=== PATIENT | female | born 1950 | race African-American/Black ===

== ENCOUNTER 2019-05-03 15:56 | Inpatient (IN) | payer OTHER, MEDICAID ==
[~2019-05-03] VITALS: Ht 165.1 cm; Wt 110.7 kg
[2019-05-03] MEDS ORDERED: FUROSEMIDE 40MG/4ML VIAL IV ONE (16:45)
[2019-05-03 17:30] LABS: BASOPHILS % 0.5 % (0.0-2.0); EOSINOPHILS % 2.4 % (0.0-5.0); HEMATOCRIT. 37.8 % (36.0-48.0); HEMOGLOBIN. 12.5 g/dL (12.0-16.0); LYMPHOCYTES % 40.4 % (20.0-50.0); MEAN CORPUSCULAR HEMOGLOBIN 30.7 pg (28.0-32.0); MEAN CORPUSCULAR VOLUME 92.6 fL (81.0-99.0); MEAN PLATELET VOLUME 9.1 fl (7.4-10.4); MONOCYTES % 11.9 % (2.0-8.0); NEUTROPHILS % 44.8 % (40.0-76.0); PLATELET 224 x1000/uL (130-400); RED BLOOD CELL COUNT 4.07 mill/uL (4.2-5.4); RED CELL DISTRIBUTION WIDTH 17.2 % (11.6-14.6)
[2019-05-03 17:33] LABS: CHLORIDE 114 mEq/L (98-107); INR 1.1; PARTIAL THROMBOPLASTIN TIME 28.7 sec (23.4-31.0); PROTHROMBIN TIME 11.7 sec (9.6-11.0)
[2019-05-03 17:38] LABS: ETHANOL BLOOD < 10 mg/dL
[2019-05-03 17:42] LABS: CARBAMAZEPINE < 0.5 ug/mL (4-12)
[2019-05-03 17:44] LABS: PHENOBARBITAL < 2.1 ug/mL (15.0-40.0)
[2019-05-03 18:25] LABS: CLARITY URINE CLEAR (CLEAR); COLOR URINE YELLOW (YELLOW); KETONES URINE NEGATIVE (NEGATIVE); LEUKOCYTE ESTERASE URINE NEGATIVE (NEGATIVE); NITRITE URINE NEGATIVE (NEGATIVE); OCCULT BLOOD URINE NEGATIVE (NEGATIVE); PH URINE 5.5 (4.5-8.0); PROTEIN URINE 2+ (NEGATIVE); SPECIFIC GRAVITY URINE 1.013 (1.005-1.030)
[2019-05-03 18:45] LABS: *AMPHETAMINES SCREEN URINE NEGATIVE (NEGATIVE); *BARBITURATES SCREEN URINE NEGATIVE (NEGATIVE); *BENZODIAZEPINES SCREEN URINE NEGATIVE (NEGATIVE); *COCAINE SCREEN URINE NEGATIVE (NEGATIVE)
[2019-05-03 18:46] LABS: CANNABINOID URINE SCREEN NEGATIVE (NEGATIVE); METHADONE URINE SCREEN NEGATIVE (NEGATIVE); OPIATES URINE SCREEN NEGATIVE (NEGATIVE); PHENCYCLIDINE URINE SCREEN NEGATIVE (NEGATIVE)
[2019-05-03] MEDS ORDERED: ONDANSETRON HCL 4MG/2ML INJ IV PRN (19:45)
[2019-05-03] MEDS ORDERED: MAGNESIUM/ALUMINUM HYDROXIDE/SIMETHICONE 30ML UDC PO PRN (19:45)
[2019-05-03] MEDS ORDERED: TRAMADOL 50MG TABLET PO PRN (19:45)
[2019-05-03] MEDS ORDERED: NITROGLYCERIN 0.4MG TABLET SL SL PRN (19:45)
[2019-05-03] MEDS ORDERED: DOCUSATE SODIUM 100MG CAPSULE PO PRN (19:45)
[2019-05-03] MEDS ORDERED: LORAZEPAM 0.5MG TABLET PO PRN (19:45)
[2019-05-03] MEDS ORDERED: GUAIFENESIN 200MG/10ML SUGAR FREE UDC PO PRN (19:45)
[2019-05-03] MEDS ORDERED: MORPHINE SULFATE 2 MG/ML CPJ (NOT FOR IM USE) IV PRN (19:45)
[2019-05-03 23:23] VITALS: BP 128/98
[2019-05-04 02:13] LABS: CREATINE KINASE MB FRACTION 2.2 ng/mL (0.5-3.6)
[2019-05-04] MEDS: PHENYTOIN SODIUM EXTENDED 100MG CAPSULE PO SCH ×2 (02:29→22:03)
[2019-05-04] MEDS: FAMOTIDINE 20MG TABLET PO SCH ×3 (02:29→22:03)
[2019-05-04] MEDS: VALPROATE SODIUM 250MG/5ML UDC PO SCH ×2 (02:29→23:04)
[2019-05-04] MEDS: POTASSIUM CHLORIDE 20MEQ TABLET SR PO SCH ×2 (02:30→08:46)
[2019-05-04] MEDS: ACETAMINOPHEN 325MG TABLET PO PRN ×2 (02:41→23:05)
[2019-05-04] MEDS: DILTIAZEM HCL 60MG TABLET PO SCH ×3 (02:41→17:42)
[2019-05-04] MEDS: FUROSEMIDE 40MG/4ML VIAL IVP SCH ×3 (02:42→22:04)
[2019-05-04] MEDS: ENOXAPARIN 100MG/ML SYR SUBCUT SCH ×2 (02:42→13:18)
[2019-05-04] MEDS: SPIRONOLACTONE 25MG TABLET PO SCH ×3 (02:42→22:04)
[2019-05-04 04:00] VITALS: BP 153/87
[2019-05-04] MEDS: IPRATROPIUM/ALBUTEROL 0.5-3(2.5)MG/3ML NEB NEB PRN ×2 (05:16→09:03)
[2019-05-04] MEDS ORDERED: ISOS60TA4 PO (07:37)
[2019-05-04] MEDS ORDERED: HYDR-4135 MT (07:37)
[2019-05-04] MEDS ORDERED: PHEN100C4 PO (07:37)
[2019-05-04] MEDS ORDERED: FURO40TA5 PO (07:37)
[2019-05-04] MEDS ORDERED: APIX5TAB MT (07:37)
[2019-05-04] MEDS ORDERED: ASPI-986 PO (07:37)
[2019-05-04] MEDS ORDERED: AMLO10TA80 PO (07:37)
[2019-05-04] MEDS ORDERED: CARV12.545 MT (07:37)
[2019-05-04] MEDS ORDERED: POTA10TA15 PO (07:37)
[2019-05-04] MEDS ORDERED: DOCU100T MT (07:37)
[2019-05-04] MEDS ORDERED: SACU1TAB7 MT (07:37)
[2019-05-04] MEDS ORDERED: ALLO300T2 PO (07:37)
[2019-05-04 08:00] VITALS: BP 146/83
[2019-05-04] MEDS: ASPIRIN 325MG EC TABLET PO SCH (08:46)
[2019-05-04] MEDS: LISINOPRIL 20MG TABLET PO SCH ×3 (08:47→22:06)
[2019-05-04 09:56] LABS: BASOPHILS % 0.4 % (0.0-2.0); EOSINOPHILS % 1.7 % (0.0-5.0); HEMATOCRIT. 37.8 % (36.0-48.0); HEMOGLOBIN. 12.1 g/dL (12.0-16.0); LYMPHOCYTES % 35.5 % (20.0-50.0); MEAN CORPUSCULAR VOLUME 93.4 fL (81.0-99.0); MEAN PLATELET VOLUME 8.9 fl (7.4-10.4); MONOCYTES % 7.2 % (2.0-8.0); NEUTROPHILS % 55.2 % (40.0-76.0); PLATELET 217 x1000/uL (130-400); RED BLOOD CELL COUNT 4.05 mill/uL (4.2-5.4); RED CELL DISTRIBUTION WIDTH 16.7 % (11.6-14.6)
[2019-05-04 09:59] LABS: CHLORIDE 112 mEq/L (98-107)
[2019-05-04 10:11] LABS: CREATINE KINASE 109 IU/L (26-192)
[2019-05-04 10:14] LABS: CREATINE KINASE MB FRACTION 2.1 ng/mL (0.5-3.6)
[2019-05-04 12:00] VITALS: BP 151/88
[2019-05-04 16:00] VITALS: BP 149/91
[2019-05-04 20:00] VITALS: BP 147/87
[2019-05-05] VITALS: BP 172/103
[2019-05-05] MEDS: CLONIDINE 0.1MG TABLET PO PRN ×2 (00:23→06:19)
[2019-05-05] MEDS: DILTIAZEM HCL 60MG TABLET PO SCH ×2 (00:24→06:18)
[2019-05-05] MEDS: ENOXAPARIN 100MG/ML SYR SUBCUT SCH (00:25)
[2019-05-05 04:00] VITALS: BP 199/122
[2019-05-05] MEDS: VALPROATE SODIUM 250MG/5ML UDC PO SCH ×2 (06:17→14:00)
[2019-05-05] MEDS: FUROSEMIDE 40MG/4ML VIAL IVP SCH ×2 (08:43→21:16)
[2019-05-05] MEDS: POTASSIUM CHLORIDE 20MEQ TABLET SR PO SCH (08:44)
[2019-05-05] MEDS: SPIRONOLACTONE 25MG TABLET PO SCH ×2 (08:44→21:17)
[2019-05-05] MEDS: FAMOTIDINE 20MG TABLET PO SCH ×2 (08:44→21:16)
[2019-05-05] MEDS: LISINOPRIL 20MG TABLET PO SCH ×2 (08:53→21:24)
[2019-05-05] MEDS: ASPIRIN 325MG EC TABLET PO SCH (08:53)
[2019-05-05 10:14] VITALS: BP 171/112
[2019-05-05] MEDS ORDERED: METOLAZONE 5MG TABLET PO NR (10:30)
[2019-05-05] MEDS ORDERED: CARVEDILOL 6.25 MG TABLET PO NR (10:45)
[2019-05-05 11:05] LABS: CHLORIDE 109 mEq/L (98-107)
[2019-05-05] MEDS: DILTIAZEM HCL 30MG TABLET PO SCH ×2 (12:48→18:41)
[2019-05-05] MEDS ORDERED: IPRATROPIUM/ALBUTEROL 0.5-3(2.5)MG/3ML NEB HHN NR (17:55)
[2019-05-05] MEDS ORDERED: FUROSEMIDE 40MG/4ML VIAL IVP NR (17:55)
[2019-05-05] MEDS: ACETAMINOPHEN 325MG TABLET PO PRN (18:41)
[2019-05-05] MEDS: METHYLPREDNISOLONE SOD SUCC 40 MG/ML VIAL IV SCH (18:42)
[2019-05-05 18:49] LABS: BG BASE EXCESS 0.7 mmol/L (-2.0-2.0); BG CARBOXYHEMOGLOBIN 0.6 % (0.5-1.5); BG DEOXYHEMOGLOBIN 1.3 % (0.0-5.0); BG FRACTION INSPIRED OXYGEN 34; BG HCO3 ACT 25.6 mmol/L (22.0-26.0); BG METHEMOGLOBIN 0.2 % (0.0-1.5); BG OXYGEN SATURATION 98.7 % (92.0-98.5); BG OXYHEMOGLOBIN 97.9 % (94.0-97.0); BG PH 7.403 (7.350-7.450); BG PO2 138.7 mmHg (75.0-100.0); BG SAMPLE SITE RIGHT RADIAL; BG TOTAL HEMOGLOBIN 13.5 g/dL (12.0-18.0); BG VENT MODE NASAL CANNULA
[2019-05-05 20:00] VITALS: BP 168/94
[2019-05-05] MEDS: BUDESONIDE 0.5MG/2ML NEB HHN SCH (20:59)
[2019-05-05] MEDS: IPRATROPIUM/ALBUTEROL 0.5-3(2.5)MG/3ML NEB HHN SCH (21:00)
[2019-05-05] MEDS: ZOLPIDEM TARTRATE 5MG TABLET PO PRN (21:16)
[2019-05-05] MEDS: PHENYTOIN SODIUM EXTENDED 100MG CAPSULE PO SCH (21:17)
[2019-05-05] MEDS: CARVEDILOL 6.25 MG TABLET PO SCH (21:25)
[2019-05-06] VITALS: BP 164/98
[2019-05-06] MEDS: IPRATROPIUM/ALBUTEROL 0.5-3(2.5)MG/3ML NEB HHN SCH ×6 (00:49→21:11)
[2019-05-06] MEDS: METHYLPREDNISOLONE SOD SUCC 40 MG/ML VIAL IV SCH ×3 (02:21→17:17)
[2019-05-06 04:00] VITALS: BP 155/92
[2019-05-06] MEDS: VALPROATE SODIUM 250MG/5ML UDC PO SCH ×3 (06:06→21:00)
[2019-05-06] MEDS: DILTIAZEM HCL 30MG TABLET PO SCH ×4 (06:07→17:17)
[2019-05-06] MEDS: CLONIDINE 0.1MG TABLET PO PRN (06:12)
[2019-05-06 06:59] LABS: BASOPHILS % 0.5 % (0.0-2.0); EOSINOPHILS % 0.1 % (0.0-5.0); HEMATOCRIT. 43.9 % (36.0-48.0); HEMOGLOBIN. 14.3 g/dL (12.0-16.0); LYMPHOCYTES % 16.4 % (20.0-50.0); MEAN CORPUSCULAR HEMOGLOBIN 30.5 pg (28.0-32.0); MEAN CORPUSCULAR VOLUME 93.4 fL (81.0-99.0); MONOCYTES % 1.9 % (2.0-8.0); NEUTROPHILS % 81.1 % (40.0-76.0)
[2019-05-06 07:10] LABS: CHLORIDE 107 mEq/L (98-107)
[2019-05-06 07:48] LABS: MEAN PLATELET VOLUME 10.3 fl (7.4-10.4); PLATELET 160 x1000/uL (130-400)
[2019-05-06 08:00] VITALS: BP 114/60
[2019-05-06] MEDS: POTASSIUM CHLORIDE 20MEQ TABLET SR PO SCH (09:04)
[2019-05-06] MEDS: SPIRONOLACTONE 25MG TABLET PO SCH (09:05)
[2019-05-06] MEDS: ASPIRIN 325MG EC TABLET PO SCH (09:05)
[2019-05-06] MEDS: FAMOTIDINE 20MG TABLET PO SCH ×2 (09:05→21:00)
[2019-05-06] MEDS: CARVEDILOL 6.25 MG TABLET PO SCH ×2 (09:05→21:01)
[2019-05-06] MEDS: LISINOPRIL 20MG TABLET PO SCH ×2 (09:05→21:00)
[2019-05-06] MEDS: FUROSEMIDE 40MG/4ML VIAL IVP SCH ×2 (09:12→21:00)
[2019-05-06] MEDS: BUDESONIDE 0.5MG/2ML NEB HHN SCH ×2 (09:41→21:11)
[2019-05-06 12:00] VITALS: BP 115/70
[2019-05-06] MEDS: ENOXAPARIN 100MG/ML SYR SUBCUT SCH ×2 (12:15)
[2019-05-06 16:00] VITALS: BP 135/69
[2019-05-06 20:14] VITALS: BP 139/72
[2019-05-06] MEDS: PHENYTOIN SODIUM EXTENDED 100MG CAPSULE PO SCH (21:00)
[2019-05-06] MEDS: ACETAMINOPHEN 325MG TABLET PO PRN (21:01)
[2019-05-06] MEDS: ZOLPIDEM TARTRATE 5MG TABLET PO PRN (23:46)
[2019-05-07] VITALS: BP 143/106
[2019-05-07] MEDS: DILTIAZEM HCL 30MG TABLET PO SCH ×2 (00:04→05:24)
[2019-05-07] MEDS: ENOXAPARIN 100MG/ML SYR SUBCUT SCH ×2 (00:04→12:27)
[2019-05-07] MEDS: IPRATROPIUM/ALBUTEROL 0.5-3(2.5)MG/3ML NEB HHN SCH ×6 (01:34→20:00)
[2019-05-07] MEDS: METHYLPREDNISOLONE SOD SUCC 40 MG/ML VIAL IV SCH ×3 (01:56→17:58)
[2019-05-07 04:00] VITALS: BP 170/86
[2019-05-07] MEDS: VALPROATE SODIUM 250MG/5ML UDC PO SCH ×2 (05:24→14:58)
[2019-05-07 07:33] LABS: HEMATOCRIT. 37.5 % (36.0-48.0); HEMOGLOBIN. 12.2 g/dL (12.0-16.0); MEAN CORPUSCULAR HEMOGLOBIN 30.2 pg (28.0-32.0); MEAN CORPUSCULAR VOLUME 92.5 fL (81.0-99.0); MEAN PLATELET VOLUME 9.3 fl (7.4-10.4); PLATELET 256 x1000/uL (130-400); RED BLOOD CELL COUNT 4.05 mill/uL (4.2-5.4); RED CELL DISTRIBUTION WIDTH 17.1 % (11.6-14.6)
[2019-05-07 07:38] LABS: CHLORIDE 104 mEq/L (98-107)
[2019-05-07 08:00] VITALS: BP 141/93
[2019-05-07] MEDS: BUDESONIDE 0.5MG/2ML NEB HHN SCH ×2 (08:23→20:08)
[2019-05-07] MEDS: FUROSEMIDE 40MG/4ML VIAL IVP SCH (08:54)
[2019-05-07] MEDS: FAMOTIDINE 20MG TABLET PO SCH (08:55)
[2019-05-07] MEDS: ASPIRIN 325MG EC TABLET PO SCH (08:55)
[2019-05-07] MEDS: LISINOPRIL 20MG TABLET PO SCH (08:55)
[2019-05-07] MEDS: CARVEDILOL 6.25 MG TABLET PO SCH ×2 (08:55→20:20)
[2019-05-07] MEDS ORDERED: DILTIAZEM HCL 5MG/ML 5ML VIAL IV NR (11:00)
[2019-05-07 12:00] VITALS: BP 145/103
[2019-05-07] MEDS: DILTIAZEM HCL 60MG TABLET PO SCH ×2 (12:28→18:46)
[2019-05-07 13:19] LABS: PLATELET ESTIMATE NORMAL
[2019-05-07] MEDS ORDERED: LOSA25TA3 MT (14:09)
[2019-05-07] MEDS ORDERED: P20 MT (14:09)
[2019-05-07] MEDS ORDERED: PRED10TA MT (14:09)
[2019-05-07] MEDS ORDERED: FLUT1AER INH (14:09)
[2019-05-07] MEDS ORDERED: P20 PO (14:09)
[2019-05-07] MEDS ORDERED: IPRA3AMP9 NEB (14:09)
[2019-05-07] MEDS ORDERED: DILT60TA41 MT (14:09)
[2019-05-07 15:04] VITALS: BP 145/103
[2019-05-07 16:00] VITALS: BP 161/97
[2019-05-07] MEDS: PHENYTOIN SODIUM EXTENDED 100MG CAPSULE PO SCH (20:20)
[2019-05-19] MEDS ORDERED: APIX5TAB MT (14:46)
[2019-05-19] MEDS ORDERED: FURO-151 PO (14:46)
[2019-05-19] MEDS ORDERED: DILT60TA35 MT (14:46)
[2019-05-19] MEDS ORDERED: FLUT1AER INH (14:46)
[2019-05-19] MEDS ORDERED: COR3 MT (14:46)
[2019-05-19] MEDS ORDERED: LEVO500T2 MT (14:46)
== END 2019-05-07 20:30 | disposition home or self-care (01) | DRG 291 ==
LOC: ER 15:56 → 8WST 19:29 → SUPCPDRO 19:36 → EDBEDREQ 19:46 → EDBEDREQTM 19:46 → ENRESERV 21:28
PROVIDERS: ADMIT Internal Medicine; ATTEND Internal Medicine
PROC: 5A09357 Assistance with Respiratory Ventilation, Less than 24 Consecutive Hours, Continuous Positive Airway Pressure (ICD-10-PCS; principal; 2019-05-05)
DX: I11.0 Hypertensive heart disease with heart failure (principal); J96.00 Acute respiratory failure, unspecified whether with hypoxia or hypercapnia; J44.1 Chronic obstructive pulmonary disease with (acute) exacerbation; E44.1 Mild protein-calorie malnutrition; D68.59 Other primary thrombophilia; I69.954 Hemiplegia and hemiparesis following unspecified cerebrovascular disease affecting left non-dominant side; Z68.41 Body mass index [BMI] 40.0-44.9, adult; E66.2 Morbid (severe) obesity with alveolar hypoventilation; I50.43 Acute on chronic combined systolic (congestive) and diastolic (congestive) heart failure; E83.51 Hypocalcemia; E87.6 Hypokalemia; B19.20 Unspecified viral hepatitis C without hepatic coma; I25.10 Atherosclerotic heart disease of native coronary artery without angina pectoris; G40.909 Epilepsy, unspecified, not intractable, without status epilepticus; M10.9 Gout, unspecified; D72.819 Decreased white blood cell count, unspecified; E87.5 Hyperkalemia; I25.5 Ischemic cardiomyopathy; I48.91 Unspecified atrial fibrillation; I34.0 Nonrheumatic mitral (valve) insufficiency; R73.9 Hyperglycemia, unspecified; I49.3 Ventricular premature depolarization; R73.03 Prediabetes; Z79.82 Long term (current) use of aspirin; Z79.899 Other long term (current) drug therapy; Z82.3 Family history of stroke; Z82.49 Family history of ischemic heart disease and other diseases of the circulatory system; Z87.891 Personal history of nicotine dependence; Z91.19 Patient's noncompliance with other medical treatment and regimen; Z95.5 Presence of coronary angioplasty implant and graft; Z95.810 Presence of automatic (implantable) cardiac defibrillator; Z91.041 Radiographic dye allergy status
CPT/HCPCS: 36415; 36600; 71045; 80048; 80061; 80156; 80165; 80184; 80185; 80305; 80320; 81003; 82140; 82375; 82550; 82553; 82805; 83036; 83605; 83880; 84443; 84484; 84550; 93005; 93306; 93923; 93970; 94618; 94640; 94660; 96374; 97116; 97162; 99285; C1893; J1650; J1940; J2920; J3490; J7620; J7626; A4315; G0480